=== PATIENT | male | born 1935 | race Caucasian/White ===

== ENCOUNTER → 2018-08-19 | Outpatient (CLI) | payer OTHER ==
[~2018-08-19] MED LIST: FLUZONE 2045 MCG/011; LEVSIN SUBLING; NEXIUM40 MG PO; PNEUMOVAX25 MCG/0.5; XANAX 0.5 MG0.5 MG PO
== END ==
LOC: M.CT 13:00
DX: S59.902A Unspecified injury of left elbow, initial encounter (principal); V89.2XXA Person injured in unspecified motor-vehicle accident, traffic, initial encounter; Y93.89 Activity, other specified; Y92.89 Other specified places as the place of occurrence of the external cause; Y99.8 Other external cause status